=== PATIENT | female | born 1995 ===

== ENCOUNTER 2019-12-08 14:54 | Outpatient (REF) | payer BC, SELFPAY ==
[2019-12-11 11:15] LABS: SARS-CoV-2 RNA Undetected (Undetected)
[2019-12-11 11:20] LABS: SARS-CoV-2 Specimen Source Nasopharynx
== END 2019-12-08 15:14 ==
LOC: NCHCN 14:54
PROVIDERS: PCP Family Medicine; Visit Provider Family Medicine
DX: Z11.59 Encounter for screening for other viral diseases (principal)
CPT/HCPCS: U0003